=== PATIENT | female | born 2000 ===

== ENCOUNTER 2018-01-05 18:36 | Emergency (ER) | payer MEDICAID ==
[2018-01-05 18:45] VITALS: O2SAT 100
[2018-01-05 19:25] LABS: HCG,QUALITATIVE URINE NEGATIVE (NEGATIVE)
[2018-01-05 19:28] LABS: SQUAMOUS EPITHIAL < 1 /hpf (0-5); URINE BILIRUBIN NEGATIVE (NEGATIVE); URINE BLOOD NEGATIVE (NEGATIVE); URINE CLARITY Hazy (Clear); URINE COLOR Yellow (YELLOW); URINE GLUCOSE (UA) NORMAL (Normal); URINE LEUKOCYTE ESTERASE NEG Leu/uL (Negative); URINE PROTEIN NEGATIVE (NEGATIVE); URINE UROBILINOGEN NORMAL mg/dL (0.2-1.0)
[2018-01-05 20:15] VITALS: BP 106/68; PULSE 77; RESP 18; TEMP 98.1
[2018-01-05] MEDS ORDERED: Magnesium Citrate Oral SOL (300 ml) PO ONE (20:21)
--- NOTE | 2018-01-05 20:21 | C.PDOC ---
History Of Present Illness 17 y/o female presents to ER complaining of lower abdominal pain which has been present for the past 2 weeks. Patient states that she was seen by her PMD and OB /SOD STRIPPER. Her ENVIRONMENT ARTIST gave her a referral for a Pelvic US and she has an appointment for the US next week. However, patient decided to visit the ER because she would like to have an US. Patient denies having any dysuria, hematuria, nausea, vomiting, vaginal discharge, and vaginal bleeding. Time Seen by Provider: 01/05/18 19:23 Chief Complaint (Nursing): Abdominal Pain History Per: Patient History/Exam Limitations: no limitations Onset/Duration Of Symptoms: Days Current Symptoms Are (Timing): Still Present Severity: Moderate Associated Symptoms: denies: Fever, Chills Past Medical History Reviewed: Historical Data, Nursing Documentation, Vital Signs Vital Signs: Last Vital Signs Temp 98.1 F 01/05/18 20:14 Pulse 77 01/05/18 20:14 Resp 18 01/05/18 20:14 BP 106/68 01/05/18 20:14 Pulse Ox 100 01/05/18 21:39 - Medical History PMH: No Chronic Diseases Surgical History: No Surg Hx Family History: States: No Known Family Hx - Social History Hx Alcohol Use: No Hx Substance Use: No - Immunization History Hx Tetanus Toxoid Vaccination: No Hx Influenza Vaccination: Yes Hx Pneumococcal Vaccination: No Review Of Systems Except As Marked, All Systems Reviewed And Found Negative. Constitutional: Negative for: Fever, Chills Gastrointestinal: Positive for: Abdominal Pain (lower abdominal pain). Negative for: Nausea, Vomiting, Diarrhea Genitourinary: Negative for: Dysuria, Hematuria, Vaginal Discharge, Vaginal Bleeding Physical Exam - Physical Exam Appears: Non-toxic, No Acute Distress Skin: Normal Color, Warm Head: Atraumatic, Normacephalic Eye(s): bilateral: Normal Inspection Nose: Normal Oral Mucosa: Moist Neck: Supple Chest: Symmetrical Cardiovascular: Rhythm Regular Respiratory: Normal Breath Sounds, No Rales, No Rhonchi, No Wheezing Gastrointestinal/Abdominal: Soft, Tenderness (LLQ tenderness), No Guarding, No Rebound Back: Normal Inspection, No CVA Tenderness Pelvic: Other (pt refused pelvic exam because she had an exam done by ENVIRONMENT ARTIST) Neurological/Psych: Oriented x3, Normal Speech ED Course And Treatment O2 Sat by Pulse Oximetry: 100 (RA) Pulse Ox Interpretation: Normal Progress Note: UA, HCG, and X-Ray- Abdomen was ordered. Patient is comfortable and she has been given Motrin PO. X-Ray- Abdomen shows moderate stool. Patient has been advised to take magnesium citrate and continue taking the medications she is taking currently. She has been also advised to keep her appointment for the US next week. Disposition Counseled Patient/Family Regarding: Diagnosis, Need For Followup, Rx Given - Disposition Referrals: Pablo Bejarano MD [Medical Doctor] - Disposition: HOME/ ROUTINE Disposition Time: 20:19 Condition: STABLE Additional Instructions: High fiber diet Take medications as prescribed Return to ER if worse Prescriptions: Polyethylene Glycol 3350 [Miralax] 17 gm PO DAILY #1 bottle Instructions: High Fiber Diet, Constipation, Adult (DC) Forms: [employer] (Khmer) - Clinical Impression Clinical Impression: Constipation - PA / CARE CONSULTANT / Resident Statement MD/DO has reviewed & agrees with the documentation as recorded. - Scribe Statement The provider has reviewed the documentation as recorded by the Hector Andrea Provider Attestation All medical record entries made by the Aspenibconstantin were at my direction and personally dictated by me. I have reviewed the chart and agree that the record accurately reflects my personal performance of the history, physical exam, medical decision making, and the department course for this patient. I have also personally directed, reviewed, and agree with the discharge instructions and disposition.
[2018-01-05] MEDS ORDERED: Magnesium Citrate Oral SOL (300 ml) ONE (20:25)
--- NOTE | 2018-01-06 08:34 | RAD ---
HISTORY: abd pain COMPARISON: No prior. FINDINGS: BOWEL: There is moderate amount of stool in the colon. The bowel gas pattern is nonobstructive. No bowel dilatation. No free air. BONES: Normal. OTHER FINDINGS: None. IMPRESSION: Constipation. Nonobstructive bowel gas pattern.
== END 2018-01-05 20:28 | disposition home or self-care (01) ==
LOC: C.ER 18:36
DX: K59.00 Constipation, unspecified (principal)